=== PATIENT | female | born 1970 | race American Indian/Alaskan Native ===

== ENCOUNTER 2018-09-30 10:26 | Emergency (ER) | payer OTHER ==
[2018-09-30 10:35] VITALS: BP 148/79
[2018-09-30] MEDS ORDERED: FLEXERIL PO ONE (11:40)
[2018-09-30] MEDS ORDERED: IBUPROFEN PO ONE (11:40)
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
== END 2018-09-30 13:51 | disposition home or self-care (01) ==
LOC: ED 10:26
DX: S39.012A Strain of muscle, fascia and tendon of lower back, initial encounter (principal); M54.2 Cervicalgia; I10 Essential (primary) hypertension; Z90.49 Acquired absence of other specified parts of digestive tract; Z88.6 Allergy status to analgesic agent; Z88.0 Allergy status to penicillin; Z88.2 Allergy status to sulfonamides; Z88.8 Allergy status to other drugs, medicaments and biological substances; V47.5XXA Car driver injured in collision with fixed or stationary object in traffic accident, initial encounter; Y93.89 Activity, other specified; Y92.488 Other paved roadways as the place of occurrence of the external cause; Y99.8 Other external cause status
CPT/HCPCS: 72131; 99283